=== PATIENT | female | born 1995 | race Caucasian/White ===

== ENCOUNTER 2019-11-12 13:41 | Outpatient (CLI) | payer BC ==
--- NOTE | 2019-11-12 16:08 | CT ---
CT ABDOMEN AND PELVIS WITH ORAL AND IV CONTRAST: 11/12/19 HISTORY: Mid abdominal pain. FINDINGS: The lung bases are clear. The liver, spleen, pancreas, adrenal glands and kidneys are normal. No calc ified gallstones are seen. No free air, free fluid or lymphadenopathy is noted in the abdomen or pelv is. The small bowel loops are not abnormally dilated. A normal appearing appendix is present. The aor ta is of normal caliber. Bony structures are unremarkable. Uterus is present. IMPRESSION: No significant abnormalities are identified. POS: [facility]
== END 2019-11-12 13:42 | disposition home or self-care (01) ==
LOC: SCSCT 13:41
PROVIDERS: ATTEND Family Medicine
DX: K58.9 Irritable bowel syndrome, unspecified (principal); R10.9 Unspecified abdominal pain
CPT/HCPCS: 74177

== ENCOUNTER 2023-07-18 15:55 | Outpatient (CLI) | payer BC | END 2023-07-18 15:56 | disposition home or self-care (01) | LOC: SCSRAD 15:55 | PROVIDERS: ATTEND Family Medicine | DX: M25.511 Pain in right shoulder (principal) ==